=== PATIENT | male | born 1980 | race Caucasian/White ===

== ENCOUNTER 2019-09-27 23:27 | Emergency (ER) | payer SELFPAY ==
[2019-09-28] MEDS ORDERED: Lidocaine 1% (PF) 30 ML VIAL ONE (00:31)
[2019-09-28] MEDS ORDERED: Bupivacaine 0.5% 10 ML VIAL ONE (00:31)
[2019-09-28] MEDS ORDERED: Bacitracin 1 PK ONE (01:20)
[2019-09-28] MEDS ORDERED: CEFAZOLIN 1 GM VIAL ONE (01:29)
[2019-09-28] MEDS ORDERED: Adacel (T-DAP) 0.5 ML SYRINGE ONE (01:29)
--- NOTE | 2019-09-28 07:33 | RAD ---
XR Hand Rt 3 View STANDARD History: Injury. Comparison: None. Findings: Comminuted likely open fracture tuft middle finger distal phalanx. Remainder of the digits are intact. Impression: Comminuted likely open fracture through the tuft distal phalanx middle finger.
== END 2019-09-28 01:54 | disposition home or self-care (01) ==
LOC: ERS 23:27
DX: S62.632B Displaced fracture of distal phalanx of right middle finger, initial encounter for open fracture (principal); F17.290 Nicotine dependence, other tobacco product, uncomplicated; F41.9 Anxiety disorder, unspecified; F32.9 Major depressive disorder, single episode, unspecified; X58.XXXA Exposure to other specified factors, initial encounter
CPT/HCPCS: 11760; 90471; 90715; 96372; J0690; J2001; J3490

== ENCOUNTER 2020-07-11 22:33 | Emergency (ER) | payer SELFPAY ==
[2020-07-11 23:17] LABS: #Basophils 0.1 thou/uL (0.0-0.2); #Eosinphils 0.1 thou/uL (0.0-0.7); #Lymphocytes 1.8 thou/uL (1.20-3.40); #Monocytes 0.4 thou/uL (0.11-0.59); #Neutrophils 1.7 thou/uL (1.40-6.50); %Basophils 2.1 % (0.0-1.0); %Eosinophils 2.3 % (0.0-10.0); %Lymphocytes 43.8 % (21.0-51.0); %Monocytes 10.7 % (0.0-10.0); %Neutrophils 41.1 % (42.0-75.0); Bilirubin Negative (Negative); Blood, Urine Negative (Negative); Clarity Clear (Clear); Glucose, Urine (Dipstick) 30 mg/dL (Negative); Hemoglobin 14.5 g/dL (14.0-18.0); Ketone, Urine Negative (Negative); Leukocyte Negative Leu/uL (Negative); Mean Corpuscular HGB CONC 36.3 g/dL (32.0-36.0); Mean Corpuscular Volume 90.8 fL (78.0-98.0); Mean Platelet Volume 8.5 fL (7.4-10.4); Nitrite Negative (Negative); Platelet Count 238 thou/uL (130-400); Protein, Urine (Dipstick) 20 mg/dL (Neg-Trace); RBC Distribution Width 11.9 % (11.5-14.5); Red Blood Cell (RBC) Count 4.41 mill/uL (4.70-6.10); Specific Gravity, Urine 1.029 (1.002-1.036); Urobilinogen Normal mg/dL (Less than 2); White Blood Cell (WBC) Count 4.1 thou/uL (4.8-10.8); pH, Urine 6.5 (5.0-9.0)
[2020-07-11] MEDS ORDERED: Meclizine HCl 25 MG TAB ONE (23:28)
[2020-07-11 23:39] LABS: ALT (SGPT) 34 U/L (8-55); AST (SGOT) 26 U/L (5-34); Albumin 4.1 g/dL (3.5-5.0); Alkaline Phosphatase 78 U/L (40-110); Anion Gap 11 mmol/L (10-20); BUN (Urea Nitrogen) 11 mg/dL (8.9-20.6); Bilirubin, Total 0.4 mg/dL (0.2-1.2); Calc. Creatinine Clearance 0 mL/min (70-130); Carbon Dioxide 25 mmol/L (22-29); Chloride 104 mmol/L (98-107); Estimated GFR-MDRD Greater than 90; Globulin 3.3 g/dL (2.4-3.5); Glucose 87 mg/dL (70-105); Potassium 3.7 mmol/L (3.5-5.1); Protein, Total 7.4 g/dL (6.0-8.3); Sodium 136 mmol/L (136-145)
== END 2020-07-12 00:49 | disposition home or self-care (01) ==
LOC: ERS 22:33
DX: R42 Dizziness and giddiness (principal); F32.9 Major depressive disorder, single episode, unspecified; F41.9 Anxiety disorder, unspecified; F17.290 Nicotine dependence, other tobacco product, uncomplicated; Z79.899 Other long term (current) drug therapy
CPT/HCPCS: 80053; 81003; 85025; 93005